=== PATIENT | male | born 1950 | race Caucasian/White ===

== ENCOUNTER 2023-11-22 14:10 | Emergency (ER) | payer OTHER ==
[~2023-11-22] VITALS: Ht 185.4 cm; Wt 77.6 kg
[2023-11-22 14:56] LABS: Urine Bacteria None Seen /hpf (None Seen)
[2023-11-22 15:13] LABS: Urine Blood Negative /uL (Negative); Urine Clarity Clear (Clear); Urine Color Light-Yellow (Yellow); Urine Protein, UAD TRACE (Negative); Urine Specific Gravity 1.033 (1.001-1.035); Urine Urobilinogen Normal (Negative); Urine WBC 1 /hpf (0 - 3); Urine pH 5.5 (5.0-9.0)
[2023-11-22 15:29] LABS: Basophils # (auto) 0.3 10 ^3/uL (0-0.2); Basophils % (auto) 2.1 % (0.0-2.0); Eosinophils # (auto) 0.2 10 ^3/uL (0-0.8); Eosinophils % (auto) 1.7 % (0.0-7.0); Hematocrit 50.1 % (41.0-53.0); Hemoglobin 16.1 g/dL (13.5-17.5); Lymphocytes # (auto) 1.8 10 ^3/uL (0.4-5.4); Lymphocytes % (auto) 14.5 % (10.0-50.0); Mean Corpuscular Hemoglobin 27.6 pg (28.0-32.0); Mean Corpuscular Hgb Conc. 32.2 g/dL (32.0-36.0); Mean Corpuscular Volume 85.5 fL (80.0-100.0); Monocytes # (auto) 0.7 10 ^3/uL (0-1.3); Monocytes % (auto) 5.8 % (0.0-12.0); Neutrophils # (auto) 9.3 10 ^3/uL (1.6-8.6); Neutrophils % (auto) 75.9 % (37.0-80.0); Nucleated Red Blood Cells % 0.1 %; Red Blood Cells 5.86 10^6/uL (4.5-5.90); Red Cell Distribution Width 17.6 % (11.8-14.3); White Blood Cell 12.3 10^3/uL (4.4-10.8)
[2023-11-22 15:49] LABS: Alanine Aminotransferase 20 U/L (7-40); Albumin 4.4 g/dL (3.2-4.8); Alkaline Phosphatase 227 U/L (46-116); Anion Gap 9 (5-15); Aspartate Aminotransferase 23 U/L (13-40); BUN/Creatinine Ratio 13.6 (10.0-20.0); Bilirubin, Total 1.2 mg/dL (0.2-1.0); Blood Urea Nitrogen 18 mg/dL (9-23); Calcium 9.8 mg/dL (8.7-10.4); Carbon Dioxide 26 mmol/L (20-30); Chloride 98 mmol/L (98-107); Sodium 133 mmol/L (136-145); Total Protein 7.7 g/dL (5.7-8.2)
[2023-11-22 16:11] LABS: Glucose 429 mg/dL (74-106)
[2023-11-22] MEDS ORDERED: InsuLIN REG 1unit/0.01ml Soln (100units/ml) IV ONE (16:15)
[2023-11-22] MEDS ORDERED: DEXTROSE (50%) 50ML SYRG IV ONE ×2 (16:15)
[2023-11-22] MEDS ORDERED: ACCU-CHEK COMFORT CURVE STRIP VI ONE (16:15)
[2023-11-22] MEDS ORDERED: InsuLIN REG 1unit/0.01ml Soln (100units/ml) SC ONE (16:15)
[2023-11-22] MEDS: ALBUTEROL SULF 2.5 MG/0.5ML(0.5%) NEB SOLN NEB ONE (16:49)
[2023-11-22] MEDS: SODIUM CHLORIDE 0.9% 500 ML IV ONE (18:20)
[2023-11-22] MEDS: InsuLIN REG 1unit/0.01ml Soln (100units/ml) SC ONE (19:27)
[2023-11-22 21:11] VITALS: BP 104/77; PULSE 110; RESP 18; TEMP 98.7; O2SAT 96
== END 2023-11-22 21:20 | disposition home or self-care (01) ==
LOC: ER 14:10
DX: E11.65 Type 2 diabetes mellitus with hyperglycemia (principal); I10 Essential (primary) hypertension; I25.10 Atherosclerotic heart disease of native coronary artery without angina pectoris; E78.5 Hyperlipidemia, unspecified; Z79.899 Other long term (current) drug therapy
CPT/HCPCS: 36415; 80053; 81001; 82962; 84484; 85025; 93005; 94640; 99283; J1815